=== PATIENT | female | born 1965 | race African-American/Black ===

== ENCOUNTER → 2016-12-20 | Outpatient (CLI) | payer OTHER ==
--- NOTE | ~2016-12-20 | CR63 ---
[facility] A Service of [facility] & [facility] RADIOLOGY TEXT RESULTS PATIENT: MULUGETA MURCIA LOCATION: [facility] : 63 UNIT #: [id number] AGE: [address]: HEDY CHONG APRN SEX: F ORDER DR: [id number] [facility] [address] [place], [place] [address] [id number] O MR#: [id number] Acc #: [id number] NAME: MULUGETA MURCIA : 1965 SEX: F STUDY DATE/TIME: 12/20/2016 14:26 UNIT: [facility] ROOM: STUDY DESCRIPTION: CR Chest 2 View Attending Physician: Hedy Chong Aprn Referring Physician: Hedy Chong Aprn Ordering Physician: Hedy Chong Aprn Primary Care Physician: Cami Carr R.N. MEDICAL IMAGING REPORT This report is preliminary unless electronic signature is present EXAM PA and lateral chest 12/20/2016 COMPARISON 10/02/2014 HISTORY Short of air on exertion for 2 years. PA and lateral views of the chest are obtained and compared directly to the patient's prior radiograph of 10/02/2014. FINDINGS Heart size is enlarged. Patient has increase in atelectasis or scarring in the bases. No new infiltrates are identified. CONCLUSION Mild cardiomegaly. Basilar fibrotic changes. No acute infiltrates seen. Dictated by... Curtis Pan M.D. THIS IS AN ELECTRONICALLY VERIFIED REPORT Curtis Pan M.D. at 12/21/2016 10:56 AM [place] TD: 12/20/2016 17:55 JOB #: [id number] MEDICAL IMAGING REPORT Page 1 of 1 COPY
== END | disposition home or self-care (01) ==
LOC: CRAD 14:09
DX: R06.02 Shortness of breath (principal); I51.7 Cardiomegaly; R91.8 Other nonspecific abnormal finding of lung field
CPT/HCPCS: 71020

== ENCOUNTER → 2017-01-03 | Outpatient (CLI) | payer OTHER ==
--- NOTE | ~2017-01-03 | US77 ---
[facility] A Service of [facility] RADIOLOGY TEXT RESULTS PATIENT: MULUGETA MURCIA LOCATION: [facility] : 63 UNIT #: [id number] AGE: [address]: ALYSE OTT SEX: F ORDER DR: [id number] [facility] [address] [place], [place] [address] [id number] O MR#: [id number] Acc #: [id number] NAME: MULUGETA MURCIA : 1965 SEX: F STUDY DATE/TIME: 01/03/2017 16:18 UNIT: [facility] ROOM: STUDY DESCRIPTION: US Kidney Bilateral Complete Attending Physician: Nick Ott M.D. Referring Physician: Shubham Sosa Ordering Physician: Nick Ott M.D. Primary Care Physician: Cami Carr R.N. MEDICAL IMAGING REPORT This report is preliminary unless electronic signature is present EXAM Renal ultrasound. INDICATIONS Chronic kidney disease stage 3. PROCEDURE Wagner-scale and Doppler imaging of the kidneys and bladder. COMPARISON None. FINDINGS Right kidney measures 9.4 cm in length. Cortical thickness 8 mm. Left kidney measures 9.9 cm in length. Cortical thickness 8 mm. No hydronephrosis or focal mass. Unremarkable bladder. IMPRESSION Mild bilateral renal cortical thinning suggesting changes of chronic renal disease. No hydronephrosis or focal lesion. Dictated by... Shon Amato M.D. THIS IS AN ELECTRONICALLY VERIFIED REPORT Shon Amato M.D. at 01/06/2017 9:45 AM LARRY/odilon TD: 01/03/2017 20:04 JOB #: [id number] [facility] A Service [facility] RADIOLOGY TEXT RESULTS PATIENT: MULUGETA MURCIA LOCATION: [facility] : 63 UNIT #: [id number] AGE: [address]: ALYSE OTT SEX: F ORDER DR: MEDICAL IMAGING REPORT Page 1 of 1 COPY
== END | disposition home or self-care (01) ==
LOC: CGUS 15:51
DX: N18.3 Chronic kidney disease, stage 3 (moderate) (principal)
CPT/HCPCS: 76770

== ENCOUNTER → 2017-01-03 | Outpatient (CLI) | payer OTHER ==
--- NOTE | ~2017-01-03 | MY11 ---
[facility] A Service [facility] RADIOLOGY TEXT RESULTS PATIENT: MULUGETA MURCIA LOCATION: [facility] : 63 UNIT #: [id number] AGE: [address]: JACKELIN CARR APRN SEX: F ORDER DR: [id number] [facility] [place], [place] [address] [id number] O MR#: [id number] Acc #: [id number] NAME: MULUGETA MURCIA : 1965 SEX: F STUDY DATE/TIME: 01/03/2017 15:00 UNIT: [facility] ROOM: STUDY DESCRIPTION: MY Mammogram Screening Dig Buddy Attending Physician: Jackelin Carr Aprn Ordering Physician: Jackelin Carr Aprn Primary Care Physician: Jackelin Carr Aprn MEDICAL IMAGING REPORT This report is preliminary unless electronic signature is present EXAM Digital screening mammogram 01/03/2017, [facility] HISTORY 51-year-old woman, no risk elevation. Previous right breast biopsy. Baseline mammogram. COMPARISON None FINDINGS Digital imaging of each breast was completed utilizing a two-view examination of each breast in craniocaudal and mediolateral-oblique projections. Review and interpretation of digital mammograms include a second review in conjunction with FDA-approved CAD device. There is a normal parenchymal presentation bilaterally consistent with the patient's age. There are no breast masses imaged and no parenchymal asymmetry is visualized. There are no suspicious microcalcifications and I see no focal architectural disturbance. NOTE: Breast parenchyma is fatty replaced IMPRESSION Negative screening digital mammogram. One-year followup recommended. Patients over the age of 40 are entered into a reminder system with target due date for the next mammogram. A result letter will also be sent to the patient. BIRADS: 1 Negative [facility] A Service [facility] RADIOLOGY TEXT RESULTS PATIENT: MULUGETA MURCIA LOCATION: [facility] : 63 UNIT #: [id number] AGE: [address]: JACKELIN CARR APRN SEX: F ORDER DR: Dictated by... Devin Luther M.D. THIS IS AN ELECTRONICALLY VERIFIED REPORT Devin Luther M.D. at 01/07/2017 9:43 AM CAPRICE/belén TD: 01/03/2017 17:20 JOB #: [id number] MEDICAL IMAGING REPORT Page 1 of 1 COPY
== END | disposition home or self-care (01) ==
LOC: CWCC 14:27
DX: Z12.31 Encounter for screening mammogram for malignant neoplasm of breast (principal); R92.8 Other abnormal and inconclusive findings on diagnostic imaging of breast
CPT/HCPCS: G0202

== ENCOUNTER → 2017-01-06 | Outpatient (CLI) | payer OTHER ==
[2017-01-06 12:43] LABS: HEMATOCRIT 36.7 % (35.0-45.0); HEMOGLOBIN 12.1 gm/dL (12.0-16.0); MEAN CELL VOLUME 86.5 FL (83-96); MEAN CORPUSCULAR HEMOGLOBIN 28.7 PG (28-34); MEAN CORPUSCULAR HGB CONC 33.1 g/dL (30-36); MEAN PLATELET VOLUME 8.3 FL (6.5-11.5); RED BLOOD COUNT 4.24 X10e (3.90-5.30); RED CELL DISTRIBUTION WIDTH 14.2 % (11.0-15.5); WHITE BLOOD COUNT 7.9 X10e3 (4.0-10.5)
[2017-01-06 12:49] LABS: URINE APPEARANCE CLEAR; URINE BILIRUBIN NEG (NEG); URINE BLOOD NEG (NEG); URINE COLOR YELLOW; URINE GLUCOSE NEG (NEG); URINE KETONE NEG (NEG); URINE LEUKOCYTE ESTERASE 1+ (NEG); URINE NITRATE NEG (NEG); URINE PROTEIN TRACE (NEG); URINE UROBILINOGEN 0.2 MG/DL (NEG)
[2017-01-06 12:51] LABS: URBCS1 AUWI 0-2 /[HPF] (0-2); URINE BACTERIA AUWI 4+ (NEGATIVE); URINE SQUAMOUS EPITHELIAL CELL NONE SEEN /[HPF]
[2017-01-06 13:14] LABS: CREATININE,RANDOM URINE 240 mg/dL; TOTAL PROTEIN,RANDOM URINE 34 mg/dl (<10)
[2017-01-06 13:20] LABS: ALBUMIN SERUM 3.7 g/dL (3.5-5.0); BILIRUBIN,TOTAL 0.4 mg/dL (0.2-2.0); BUN/CREATININE RATIO 10.9; CALCIUM SERUM 9.8 mg/dL (8.4-10.2); CREATININE SERUM 2.2 mg/dL (0.6-1.4); GLOM FILT RATE Estimated 28.9 mL/min (>60); PHOSPHOROUS 3.6 mg/dL (2.5-4.6); POTASSIUM 4.3 mmol/L (3.5-5.1); PROTEIN TOTAL SERUM 7.1 g/dL (6.0-8.3)
[2017-01-08 20:54] LABS: CALCIUM (PTHINTACT) 9.7 mg/dL (8.6-10.4)
== END | disposition home or self-care (01) ==
LOC: CLAB 11:55
PROVIDERS: Internal Medicine Nephrology
DX: N18.3 Chronic kidney disease, stage 3 (moderate) (principal)
CPT/HCPCS: 36415; 80053; 81003; 82310; 82570; 82728; 83540; 83550; 83970; 84100; 84156; 85027

== ENCOUNTER 2017-02-01 16:58 | Emergency (ER) | payer OTHER | END 2017-02-01 19:32 | disposition home or self-care (01) | LOC: CFTX 16:58 → CED 16:58 → CFTX 18:45 | DX: J02.9 Acute pharyngitis, unspecified (principal); E11.9 Type 2 diabetes mellitus without complications; K21.9 Gastro-esophageal reflux disease without esophagitis; J44.9 Chronic obstructive pulmonary disease, unspecified; Z88.0 Allergy status to penicillin | CPT/HCPCS: 87651; 99282 ==

== ENCOUNTER 2017-04-14 18:58 | Emergency (ER) | payer OTHER ==
[~2017-04-14] VITALS: Ht 167.6 cm; Wt 126.5 kg
== END 2017-04-14 23:55 | disposition home or self-care (01) ==
LOC: CED 18:58 → CFTX 18:58
DX: K12.30 Oral mucositis (ulcerative), unspecified (principal); K12.1 Other forms of stomatitis; E78.5 Hyperlipidemia, unspecified; I10 Essential (primary) hypertension; Z88.0 Allergy status to penicillin
CPT/HCPCS: 99282